=== PATIENT | female | born 1960 | race Two or more races ===

== ENCOUNTER 2017-11-15 00:55 | Emergency (ER) | payer SELFPAY ==
[~2017-11-15] VITALS: Ht 172.7 cm; Wt 64.4 kg
--- NOTE | 2017-11-15 01:17 | Emergency Room Report ---
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 She presents with behavioral complaint. Initially she called 911 because of brain pain. Now she complaining of generalized pain but it will not tell worse hurting. Denies any fever chills but denies any nausea vomiting. Denies any drug abuse. Admits to drinking alcohol tonight. No vomiting or diarrhea. Allergies: Coded Allergies: No Known Allergies (Unverified , 11/15/17) Patient History Past Medical History: see triage record, old chart reviewed Past Surgical History: other Pertinent Family History: none Social History: Reports: alcohol use Last Menstrual Period: none Now: No Immunizations: other Reviewed Nursing Documentation: PMH: Agreed; PSxH: Agreed Review of Systems Eye: Denies: eye pain, blurred vision ENT: Denies: ear pain, nose congestion, throat swelling Respiratory: Denies: cough, shortness of breath Cardiovascular: Denies: chest pain, palpitations Gastrointestinal: Denies: abdominal pain, diarrhea, nausea, vomiting Musculoskeletal: Denies: back pain, joint pain Skin: Denies: rash Neurological: Denies: headache, numbness Endocrine: Denies: increased thirst, increased urine Hematologic/Lymphatic: Denies: easy bruising All Other Systems: negative except mentioned in HPI Physical Exam Vital Signs Date Time Temp Pulse Resp B/P (MAP) Pulse Ox O2 Delivery O2 Flow Rate FiO2 11/15/17 00:52 98.7 79 18 136/72 98 Room Air 98.8 vitals unremarkable Sp02 EP Interpretation: reviewed, normal General Appearance: well appearing, no apparent distress, alert, other - intoxicated Head: normocephalic, atraumatic Eyes: bilateral eye PERRL, bilateral eye EOMI ENT: hearing grossly normal, normal pharynx Neck: full range of motion, supple, no meningismus Respiratory: chest non-tender, lungs clear, normal breath sounds Cardiovascular #1: regular rate, rhythm, no murmur Gastrointestinal: normal bowel sounds, non tender, no mass, no organomegaly, no bruit, non-distended Musculoskeletal: back normal, gait/station normal, normal range of motion Neurologic: alert, oriented x3 Psychiatric: depressed affect Skin: warm/dry Medical Decision Making Diagnostic Impression: Primary Impression: Behavioral disorder Additional Impression: Alcohol intoxication Qualified Codes: F10.920 - Alcohol use, unspecified with intoxication, uncomplicated ER Course Patient with alcohol intoxication. Denies suicidal thought homicidal thought. No criteria for 5150. We will observe her until clinical sobriety. Afterward will discharge home. Last Vital Signs Date Time Temp Pulse Resp B/P (MAP) Pulse Ox O2 Delivery O2 Flow Rate FiO2 11/15/17 00:52 98.7 79 18 136/72 98 Room Air 98.8 Status: improved Disposition: HOME, SELF-CARE Condition: Stable Additional Instructions: stop drinking alcohol. Follow-up with rehabilitation. Follow-up with your DOCTOR in 7 days. Return if worse. ALIYAH HERNANDEZ M.D. Nov 15, 2017 01:16
[2017-11-15 02:57] VITALS: BP 122/70
== END 2017-11-15 02:55 | disposition home or self-care (01) ==
LOC: EDBD 00:55 → EMR 01:59
DX: F91.9 Conduct disorder, unspecified (principal); F10.920 Alcohol use, unspecified with intoxication, uncomplicated
CPT/HCPCS: 99284